=== PATIENT | female | born 1980 | race Caucasian/White ===

== ENCOUNTER 2016-06-07 08:53 | Outpatient (CLI) | payer MEDICAID, OTHER ==
[~2016-06-07] VITALS: Ht 162.6 cm; Wt 71.3 kg
[2016-06-07 09:02] VITALS: Ht 162.6 cm; Wt 71.3 kg
[2016-06-07] MEDS ORDERED: PREN1TAB79 PO (09:08)
--- NOTE | 2016-06-07 09:29 | RADRPT ---
PROCEDURE: US OB. CLINICAL INDICATION: Post dates. TECHNIQUE: Multiple sonographic images of the uterus were obtained. The images were revi ewed on a PACS workstation. COMPARISON: No prior studies are available for comparison. FINDINGS: There is a single live intrauterine gestation. heart rate is 161 beats per minute. Measurements were made in order to determine age. The results are as follows: BPD = 8.98 cm. HC = 32.44 cm. AC = 35.68 cm. FL = 7.31 cm. Estimated weight is 3474 +/- 521 grams. LMP growth percentile is 34 %. Menstrual age by ultrasound dates is 37 weeks 4 days. The estimated date of delivery is 06/24/2016. Position is cephalic and placenta is posterior grade II. There is no evidence for an abruption or pl acenta previa. IMPRESSION: 1. Single live intrauterine gestation of 37 weeks 4 days menstrual age by ultrasound dates. 2. The estimated date of delivery is 06/24/2016. RPTAT: QQ .Edvin Loera MD, Date Time Electronically viewed and signed by .Edvin Loera MD, on 06/07/2016 09:28 .R/
--- NOTE | 2016-06-07 09:30 | RADRPT ---
PROCEDURE: US biophysical profile. CLINICAL INDICATION: Post dates. TECHNIQUE: Multiple sonographic images of the uterus were obtained. The images were revi ewed on a PACS workstation. COMPARISON: No prior studies are available for comparison. FINDINGS: There is a single live intrauterine gestation. heart rate is 144 beats per minute. The position is cephalic. The placenta is posterior grade II with no abruption or previa. The SERGIO is 12.9 cm. (Normal = 5-20 cm.) Breathing Movement: 2 Gross Body Movement: 2 Tone: 2 Qualitative Amniotic Fluid Volume: 2 TOTAL: 8 IMPRESSION: 1. The biophysical score is 8/8. RPTAT: QQ .Edvin Loera MD, Date Time Electronically viewed and signed by .Edvin Loera MD, on 06/07/2016 09:29 .R/
--- NOTE | 2016-06-07 09:57 | TRIAGE ---
OB Triage Datetime Report Generated by CPN: 06/07/2016 09:57 Datetime: 06/07/2016 09:00 Assessment Type: Triage EGA: 40.2 Maternal Assessment Level of Consciousness: Fully Conscious DTR's/Clonus: DTRs 2+; No Clonus Headache: Denies Blurred Vision: No Respiratory Effort: Unlabored; Regular Rhythm; Equal Expansion Breath Sounds, Left: Clear and Equal Breath Sounds, Right: Clear and Equal Nausea/Vomiting: Denies RUQ Epigastric Pain: Denies Lower Extremities Edema: None Degree: None Upper Extremities Edema: None Degree: None Facial Edema: None Fall Risk Assessment History of Falling: (0) No Secondary Diagnosis: (0) No Ambulatory Aid: (0) Bedrest/Nurse Assist IV Therapy: (0) No Gait: (0) Normal/Bedrest/Immobile Mental Status: (0) Oriented to Own Ability Fall Score: 0 Fall Risk Score Definition: No Risk: No action required Vaginal Exam Dilatation (cms): 1.0 Effacement (%): 0 Station: -4 Exam By: GALILEO LONGORIA Vaginal Bleeding: None Cervix, Consistency: Moderate Cervix, Position: Midposition Datetime: 06/07/2016 08:46 Stage of : OB Triage Time of Arrival: 06/07/2016 08:46 Arrived By: Ambulatory Arrived From: Home Chief Complaint: PT CAME IN FROM MD'S OFFICE TO HAVE A NST AND BPP AND EFW FOR POST DATES Movement: Present Contractions: Denies/Absent Rupture of Membranes: Denies Vaginal Bleeding: None Vaginal Discharge: Denies Recent Sexual Intercouse: Denies Abdominal Trauma: Not Applicable Patient Complaints: Other Additional Patient Complaints: NONE Provider Notified: TAMEKA Initial Plan: NST, BPP, EFW
== END 2016-06-07 10:00 | disposition home or self-care (01) ==
LOC: OBT 08:53 → L-D 08:55 → OBT 10:00
PROVIDERS: ATTEND Obstetrics & Gynecology
DX: O48.0 Post-term pregnancy (principal); Z3A.40 40 weeks gestation of pregnancy
CPT/HCPCS: 76815; 76818; Z7500; G0463

== ENCOUNTER 2016-06-09 18:00 | Inpatient (IN) | payer OTHER ==
[~2016-06-09] VITALS: Ht 162.6 cm; Wt 71.3 kg
[~2016-06-09 18:00] MED LIST: PREN1TAB79 PO
[2016-06-09 20:07] VITALS: BP 131/78; PULSE 81; RESP 16; Ht 162.6 cm; Wt 71.3 kg
--- NOTE | 2016-06-09 20:27 | HP ---
Date/Time of Note Date/Time of Note DATE: 06/09/16 TIME: 20:25 OB - History Hx of Present Chief Complaint: induction of labor Estimated Due Date: Jun 05, 2016 : 2 Para: 0 Spontaneous : 0 Therapeutic : 1 Care: Good Care Ultrasounds: Normal mid trimester US Obstetrical Complications: None Medical Complications: None Past Family/Social History * Past Medical, Surgical, Family and Obstetric Histories reviewed from chart. GBS Status: Negative OB Admission Exam Vital Signs Vital Signs Vital Signs Date Time Temp Pulse Resp B/P Pulse Ox O2 Delivery O2 Flow Rate FiO2 06/09/16 20:07 99.3 81 16 131/78 99 Room Air Physical Exam HEENT: WNL Heart: Rhythm Normal Lungs: Clear Abdomen: WNL Extremities: Normal Reflexes: Normal Cervical Dilatation: Fingertip Effacement: 50% Station: -1 Membranes: Intact Heart Rate: 140's Accelerations: Accelerations Present Decelerations: No Decelerations Varibility: Moderate OB Assessment/Plan Reason for admission: induction of labor Induction Method: per Misoprostol Protocol RODO ENGLISH MD Jun 09, 2016 20:27
[2016-06-09] MEDS ORDERED: ACETAMINOPHEN/CODEINE #3 TAB PO PRN (20:30)
[2016-06-09] MEDS ORDERED: MISOPROSTOL 200 MCG TAB PR PRN (20:30)
[2016-06-09] MEDS ORDERED: OXYTOCIN 30 UNITS/LR 500 ML IV PRN (20:30)
[2016-06-09] MEDS ORDERED: METHYLERGONOVINE 0.2 MG INJ IM PRN (20:30)
[2016-06-09] MEDS ORDERED: CARBOPROST 250 MCG INJ IM PRN (20:30)
[2016-06-09] MEDS ORDERED: BUTORPHANOL 2 MG INJ IV PRN (20:30)
[2016-06-09] MEDS ORDERED: LIDOCAINE 1% (MPF) 30 ML INJ INJ PRN (20:30)
[2016-06-09] MEDS ORDERED: IBUPROFEN 600 MG TAB PO PRN (20:30)
[2016-06-09] MEDS: LACTATED RINGER'S 1,000 ML IV SCH ×2 (20:49→22:54)
[2016-06-09 20:51] LABS: ADD SCAN DIFF NO
[2016-06-09 20:53] LABS: BASOPHILS % 0.3 % (0.0-2.0); EOSINOPHILS # 0.1 10^3/ul (0.0-0.5); EOSINOPHILS % 0.6 % (0.0-7.0); HEMATOCRIT 36.8 % (37.0-47.0); HEMOGLOBIN 12.6 g/dl (12.0-16.0); LYMPHOCYTES # 3.4 10^3/ul (0.8-2.9); LYMPHOCYTES % 32.6 % (15.0-51.0); MEAN CORPUSCULAR HEMOGLOBIN 31.7 pg (29.0-33.0); MEAN CORPUSCULAR HGB CONC 34.2 g/dl (32.0-37.0); MEAN CORPUSCULAR VOLUME 92.5 fl (82.0-101.0); MEAN PLATELET VOLUME 11.1 fl (7.4-10.4); MONOCYTE # 0.6 10^3/ul (0.3-0.9); MONOCYTES % 5.9 % (0.0-11.0); NEUTROPHIL # 6.3 10^3/ul (1.6-7.5); NEUTROPHILS % 59.9 % (39.0-77.0); NUCLEATED RED BLOOD CELLS% 0.2 /100WBC (0.0-0.0); PLATELET COUNT 180 10^3/UL (140-415); RED BLOOD COUNT 3.98 10^6/ul (4.20-5.40); RED CELL DISTRIBUTION WIDTH 12.7 % (11.5-14.5); WHITE BLOOD COUNT 10.6 10^3/ul (4.8-10.8)
[2016-06-09] MEDS ORDERED: MISOPROSTOL 25 MCG CAPSULE VAG SCH (21:00)
[2016-06-09 21:03] LABS: INR 0.85; PARTIAL THROMBOPLASTIN TIME 25.7 Sec (25.0-35.0); PROTIME 11.6 Sec (12.2-14.2); PT RATIO 0.9
[2016-06-09] MEDS: MISOPROSTOL 25 MCG CAPSULE PO SCH (21:27)
[2016-06-09] MEDS ORDERED: LACTATED RINGER'S 1,000 ML IV PRN (23:55)
[2016-06-10] MEDS: MISOPROSTOL 25 MCG CAPSULE PO SCH ×3 (01:43→13:00)
[2016-06-10] MEDS ORDERED: OXYTOCIN 30 UNITS/LR 500 ML IV SCH (02:00)
[2016-06-10] MEDS: LACTATED RINGER'S 1,000 ML IV SCH ×3 (06:35→21:52)
[2016-06-10] MEDS ORDERED: OXYTOCIN 30 UNITS/LR 500 ML IV PRN (11:00)
[2016-06-10] MEDS ORDERED: FENTAnyl 2MCG/ML-ROPIV 0.2% 100 ML ONE (22:57)
[2016-06-11] MEDS ORDERED: NALOXONE (0.4 MG/ML) INJ IV PRN (00:30)
[2016-06-11] MEDS ORDERED: HYDROmorphONE 1 MG/ML SYG IV PRN ×2 (00:30)
[2016-06-11] MEDS ORDERED: ONDANSETRON 4 MG INJ IV PRN (00:30)
[2016-06-11] MEDS ORDERED: DIPHENHYDRAMINE 50 MG INJ IV PRN (00:30)
[2016-06-11] MEDS: LACTATED RINGER'S 1,000 ML IV SCH ×3 (03:13→17:56)
[2016-06-11] MEDS: FENTAnyl 2MCG/ML-ROPIV 0.2% 100 ML BAG EPI SCH ×3 (06:33→22:20)
--- NOTE | 2016-06-11 22:54 | QN ---
Documentation Comment Patient has progressed to 5 cm dilation but there has been no further progress for several hours despite having adequate contractions. Patient is extensively counseled about her lack of progress in labor. Patient is counseled about the potential complications of continuing with labor including but not limited to chorioamnionitis and possible need of baby being admitted to NICU for IV antibiotics as well as infection in mother and hemorrhage. After counseling patient states she understands and would like to continue with labor. RODO ENGLISH MD Jun 11, 2016 22:53
[2016-06-12] MEDS: LACTATED RINGER'S 1,000 ML IV SCH ×4 (00:48→22:02)
[2016-06-12] MEDS: FENTAnyl 2MCG/ML-ROPIV 0.2% 100 ML BAG EPI SCH (04:48)
[2016-06-12] MEDS ORDERED: OXYTOCIN 30 UNITS/LR 500 ML BAG IV ONE (07:00)
[2016-06-12] MEDS ORDERED: GENTAMICIN 80 MG/NS (PMX) 50 ML IVPB ONE (11:18)
[2016-06-12] MEDS ORDERED: ONDANSETRON 4 MG INJ ONE (11:27)
[2016-06-12] MEDS ORDERED: OXYTOCIN 10 UNIT INJ ONE (11:27)
[2016-06-12] MEDS ORDERED: morphine SULFATE/PF (10 MG/10 ML) INJ ONE (11:27)
[2016-06-12] MEDS ORDERED: PHENYLephrine (100 MCG/ML) 5ML SYG ONE ×2 (11:27→12:33)
[2016-06-12] MEDS ORDERED: CLINDAMYCIN 900 MG/D5W (PMX) 50 ML IVPB SCH (11:30)
--- NOTE | 2016-06-12 11:37 | QN ---
Documentation Comment Patient is still 5 cm dilated and there has been no further progress. Patient requests delivery by primary . Risks, benefits and alternatives were explained to the patient. Patient states she understands and gives informed consent for the procedure. RODO ENGLISH MD Jun 12, 2016 11:37
[2016-06-12] MEDS ORDERED: NALOXONE (0.4 MG/ML) INJ IV PRN (13:30)
[2016-06-12] MEDS ORDERED: ONDANSETRON 4 MG INJ IV PRN (13:30)
[2016-06-12] MEDS ORDERED: morphine 2 MG INJ IV PRN (13:30)
[2016-06-12] MEDS ORDERED: DIPHENHYDRAMINE 50 MG INJ IV PRN (13:30)
[2016-06-12] MEDS: KETOROLAC 30 MG INJ IV PRN (13:57)
--- NOTE | 2016-06-12 15:10 | OPR ---
DATE OF OPERATION: 06/12/2016 PREOPERATIVE DIAGNOSES: at term with arrest of dilation. POSTOPERATIVE DIAGNOSES: at term with arrest of dilation. OPERATION PERFORMED: Primary low transverse section. SURGEON: Rodo English MD GARMENT LINER: Ismael Lassiter MD ANESTHESIA: Epidural. ANESTHESIOLOGIST: Wilmer Montez MD PROCEDURE: The patient was taken to the operating room and placed on the operating table. After ad equate epidural anesthesia was given, the patient was placed in supine position. The area was prepa red and draped in the usual sterile fashion. Epidural anesthesia was tested and was satisfactory. Using a scalpel, Pfannenstiel incision was made about 2 fingerbreadths above the symphysis pubis. T he incision was carried down to the fascia. The fascia was incised and extended bilaterally with Selvin vie. Two Carisa's were used to separate the fascia from the muscle. The muscle was dissected in mi dline down to peritoneum. The peritoneum was bluntly entered. Using a scalpel, a small transverse incision was made in the lower segment of the uterus. Upon entering the uterine cavity, bandage sci ssors were inserted to extend the incision bilaterally, curved up. Baby was delivered from cephalic presentation. After suctioning clear of amniotic fluid, the baby was handed off to the neonatologi st in attendance. Apgars were 9 and 9. Placenta was delivered without difficulty. Uterus was clos ed with #1 Monocryl continuous locked. After assuring hemostasis, both ovaries and tubes were inspe cted, all looked normal. The peritoneal cavity was irrigated with warm saline. Peritoneum was clos ed with 2-0 Vicryl continuous. The fascia was closed with #1 Vicryl continuous. The skin was close d with nanda. ESTIMATED BLOOD LOSS: 600 mL. COMPLICATIONS: None. COUNTS: All counts were correct. Dictated By: RODO ENGLISH MD GD/NTS Conf#: [id number] DID#: [id number]
[2016-06-12 16:00] VITALS: BP 124/63; PULSE 73; RESP 18
[2016-06-12] MEDS ORDERED: METHYLERGONOVINE 0.2 MG INJ IM PRN (16:00)
[2016-06-12] MEDS ORDERED: OXYCODONE/ACETAMINOPHEN (5/325) TAB PO PRN (16:00)
[2016-06-12] MEDS ORDERED: OXYTOCIN 30 UNITS/LR 500 ML IV PRN (16:00)
[2016-06-12] MEDS ORDERED: MISOPROSTOL 200 MCG TAB PR PRN (16:00)
[2016-06-12] MEDS ORDERED: LANOLIN 7 GM TUBE TOP PRN (16:00)
[2016-06-12] MEDS ORDERED: CARBOPROST 250 MCG INJ IM PRN (16:00)
[2016-06-12] MEDS: OXYTOCIN 30 UNITS/LR 500 ML IV SCH ×2 (17:49→19:40)
[2016-06-12 19:40] VITALS: BP 105/65; PULSE 65; RESP 18
[2016-06-12] MEDS: SENNA/DOCUSATE NA (8.6MG/50MG) TAB PO SCH (21:00)
[2016-06-13 00:25] VITALS: BP 106/55; PULSE 78; RESP 18
[2016-06-13 04:10] VITALS: BP 98/60; PULSE 79; RESP 18
[2016-06-13] MEDS: KETOROLAC 30 MG INJ IV PRN ×2 (05:17→11:56)
[2016-06-13] MEDS: LACTATED RINGER'S 1,000 ML IV SCH ×3 (05:35→23:40)
[2016-06-13 07:19] LABS: ADD SCAN DIFF NO
[2016-06-13 07:22] LABS: BASOPHILS % 0.1 % (0.0-2.0); EOSINOPHILS % 0.4 % (0.0-7.0); HEMATOCRIT 31.6 % (37.0-47.0); HEMOGLOBIN 10.6 g/dl (12.0-16.0); LYMPHOCYTES # 1.9 10^3/ul (0.8-2.9); LYMPHOCYTES % 16.9 % (15.0-51.0); MEAN CORPUSCULAR HEMOGLOBIN 31.8 pg (29.0-33.0); MEAN CORPUSCULAR HGB CONC 33.5 g/dl (32.0-37.0); MEAN CORPUSCULAR VOLUME 94.9 fl (82.0-101.0); MONOCYTE # 0.7 10^3/ul (0.3-0.9); MONOCYTES % 6.1 % (0.0-11.0); NEUTROPHIL # 8.6 10^3/ul (1.6-7.5); NEUTROPHILS % 75.7 % (39.0-77.0); PLATELET COUNT 112 10^3/UL (140-415); RED BLOOD COUNT 3.33 10^6/ul (4.20-5.40); RED CELL DISTRIBUTION WIDTH 13.4 % (11.5-14.5); WHITE BLOOD COUNT 11.4 10^3/ul (4.8-10.8)
[2016-06-13 08:00] VITALS: BP 87/50; PULSE 59; RESP 16
[2016-06-13] MEDS: SENNA/DOCUSATE NA (8.6MG/50MG) TAB PO SCH ×2 (09:00→20:40)
[2016-06-13 12:00] VITALS: BP 118/66; PULSE 84; RESP 16
[2016-06-13] MEDS: OXYCODONE/ACETAMINOPHEN (5/325) TAB PO PRN ×3 (13:51→19:20)
[2016-06-13] MEDS: IBUPROFEN 800 MG TAB PO SCH ×2 (14:00→22:29)
[2016-06-13 16:00] VITALS: BP 110/60; PULSE 62; RESP 16
--- NOTE | 2016-06-13 16:19 | QN ---
Documentation Comment No complaint Afebrile VSS Abdomen soft ND POD #1 Stable Ambulate Advance diet. RODO ENGLISH MD Jun 13, 2016 16:19
[2016-06-13 20:20] VITALS: BP 103/65; PULSE 77; RESP 20
[2016-06-14 04:00] VITALS: BP 102/57; PULSE 60; RESP 18
[2016-06-14] MEDS: IBUPROFEN 800 MG TAB PO SCH ×3 (05:39→21:51)
[2016-06-14] MEDS: LACTATED RINGER'S 1,000 ML IV SCH ×3 (07:40→23:40)
[2016-06-14 08:08] LABS: ADD SCAN DIFF NO
[2016-06-14 08:21] LABS: BASOPHILS % 0.1 % (0.0-2.0); EOSINOPHILS # 0.1 10^3/ul (0.0-0.5); EOSINOPHILS % 1.4 % (0.0-7.0); HEMATOCRIT 32.5 % (37.0-47.0); HEMOGLOBIN 10.7 g/dl (12.0-16.0); LYMPHOCYTES # 2.4 10^3/ul (0.8-2.9); LYMPHOCYTES % 27.1 % (15.0-51.0); MEAN CORPUSCULAR HEMOGLOBIN 31.8 pg (29.0-33.0); MEAN CORPUSCULAR HGB CONC 32.9 g/dl (32.0-37.0); MEAN CORPUSCULAR VOLUME 96.7 fl (82.0-101.0); MEAN PLATELET VOLUME 10.9 fl (7.4-10.4); MONOCYTE # 0.7 10^3/ul (0.3-0.9); MONOCYTES % 7.5 % (0.0-11.0); NEUTROPHIL # 5.7 10^3/ul (1.6-7.5); NEUTROPHILS % 63.2 % (39.0-77.0); PLATELET COUNT 129 10^3/UL (140-415); RED BLOOD COUNT 3.36 10^6/ul (4.20-5.40); RED CELL DISTRIBUTION WIDTH 13.3 % (11.5-14.5)
[2016-06-14 08:30] VITALS: BP 110/59; PULSE 57; RESP 16
[2016-06-14] MEDS: SENNA/DOCUSATE NA (8.6MG/50MG) TAB PO SCH ×2 (08:59→21:04)
[2016-06-14] MEDS: OXYCODONE/ACETAMINOPHEN (5/325) TAB PO PRN ×3 (13:00→22:20)
[2016-06-14 16:00] VITALS: BP 115/58; PULSE 75; RESP 16
--- NOTE | 2016-06-14 18:41 | QN ---
Documentation Comment No complaint Afebrile VSS Abdomen soft POD #2 Stable Continue with present care. RODO ENGLISH MD Jun 14, 2016 18:41
[2016-06-14 19:20] VITALS: BP 102/60; PULSE 70; RESP 19
[2016-06-15 04:00] VITALS: BP_SYST 100; BP_SYST 114; BP_DIAS 62; PULSE 68; RESP 19
[2016-06-15] MEDS: IBUPROFEN 800 MG TAB PO SCH (05:43)
[2016-06-15 08:30] VITALS: BP 118/53; PULSE 65; RESP 18
[2016-06-15] MEDS ORDERED: DIPHTH/TET/ACEL PERTUSS (ADULT) 0.5 ML VIAL IM* ONE (09:00)
[2016-06-15] MEDS: SENNA/DOCUSATE NA (8.6MG/50MG) TAB PO SCH (09:16)
[2016-06-15] MEDS: OXYCODONE/ACETAMINOPHEN (5/325) TAB PO PRN (12:27)
--- NOTE | 2016-06-15 13:54 | DS ---
DATE OF ADMISSION: 06/09/2016 DATE OF DISCHARGE: 06/15/2016 ADMITTING DIAGNOSIS: at term. HISTORY: A 35-year-old female, 2, para 0-0-1-0 at time of admission, para 1-0-1-1 at time o f discharge, with term , was admitted for induction of labor. On 06/12/2016 after obtainin g informed consent, the patient underwent a primary low transverse section due to arrest of dilation. The patient's operation was uncomplicated. Postoperatively, patient was given clear liq uid diet, which was advanced to a regular diet, which she tolerated well. The patient is discharged on postop day #3 after having had adequate bladder and bowel function. CONDITION ON DISCHARGE: Stable. DISCHARGE INSTRUCTIONS DIET: Regular. ACTIVITIES: Pelvic rest and no strenuous activities. MEDICATIONS: 1. Motrin as needed for pain. 2. Continue with vitamins and ferrous sulfate. Follow up in clinic in 1 week. FINAL DIAGNOSES 1. Term , delivered by section. 2. Arrest of dilation. 3. Mother with single liveborn. Dictated By: RODO BILLY/JEAN Conf#: [id number] DID#: [id number]
== END 2016-06-15 15:00 | disposition home or self-care (01) | DRG 766 ==
LOC: L-D 18:11 → PP1 06-12 16:05
PROVIDERS: ADMIT Obstetrics & Gynecology; ATTEND Obstetrics & Gynecology
PROC: 3E0D7GC Introduction of Other Therapeutic Substance into Mouth and Pharynx, Via Natural or Artificial Opening (ICD-10-PCS; 2016-06-09)
PROC: 10D00Z1 Extraction of Products of Conception, Low, Open Approach (ICD-10-PCS; principal; 2016-06-12 12:30)
DX: O62.1 Secondary uterine inertia (principal); Z37.0 Single live birth; Z3A.00 Weeks of gestation of pregnancy not specified
CPT/HCPCS: 62319; 85025; 85610; 85730; 86592; 86900; 86901; 90715; 94760; 99464; J1580; J1885; J2274; J2370; J2405; J2590; J3010; J7120